=== PATIENT | female | born 1960 | race Caucasian/White ===

== ENCOUNTER → 2017-03-13 | Outpatient (CLI) | payer OTHER ==
--- NOTE | 2017-03-14 05:43 | PAP/PSG TECHNICIAN REPORT ---
[facility] [employer] Polysomnogram Report Study name: None Report date: 03/14/2017 Study date: 03/13/2017 Referring Physician: Solange Gibson M.D. Name: KAIN SÁNCHEZ Interpreting Physician: Rocio Gibson M.D. 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 Sex: Female Age: 56 StudyType: PSG Weight: 151 lbs Height: 56 years, Height 5' 4.5" Neck Circum: 12.5 inches BMI: 25.52 Medications: Prilosec 20 mg, Flexeril 10 mg, Elavil 25 mg, Rizatriptan Benzoate 5 mg, Meloxicam 15 mg, Flonase 50 MCG, Vitamin D 1000 Patient History 56 yr. old female here for a possible split night sleep study in room 6. Patient complains of gasping and EDS. She can always fall asleep. Patients [place] Sleepiness scale score is 18/24. Parameters Monitored NPSG: E1-M2, E2-M1, Fp1-M2, Fp2-M1, F3-M2, F4-M2, F4-M1, C3-M2, C4-M2, C4-M1, O1-M2, O2-M2, O2-M1, T3-M2, T4-M1, P3-M2, P4-M1, CHIN1, CHIN2, HR, EKG, Legs, PFLOW, SNOR, FLOW, CFLOW, Tidal Volume, THOR, ABDO, SpO2, PLTH, CPRESS, ETCO2 Wave, ETCO2, pH Sleep Architecture Sleep Stages Time at Lights Off 9:21:25 PM STAGES Time (min.) TST (%) Time at Lights On 5:29:25 AM Wake 38.5 -- Total Recording Time (TRT) 489.00 min. N1 32.0 7 Total Sleep Period (TSP) 467.0 min. N2 265.0 59 Total Sleep Time (TST) 449.5min. N3 52.5 12 Awake Time 39.5 min. REM 100.0 22 Wake after Sleep Onset 17.5 min. Sleep Efficiency (SE) 92 % Sleep Onset Latency (CURRY) 21.0 min. Number of Stage 1 Shifts None Awakenings 19 Stage Changes 92 Number of REM periods 14 REM 100.0 22 REM Latency 86.0 min. NREM 349.5 78 Body Position Analysis Supine Right Left Side Prone Vertical Total Sleep Time (min.) 392.1 47.0 44.7 91.66 0.0 0.0 Total Sleep Time (%) 80% 10% 10% 20 0% N/A% Total Sleep Time REM (min.) 100.0 0.0 0.0 None 0.0 0.0 Total Sleep Time NREM (min.) 257.8 47.0 44.7 None 0.0 0.0 Intermittent Wake (min.) 34.3 2.7 1.5 None 0.0 0.0 Total Sleep Period (%) 79% None None None None None Arousals Myoclonus (PLM) * Events Count Index Events Count Index Spontaneous 15 2 Events Awake (PLMW) 52 81.0 Respiratory 2 0.3 Events Asleep w/ Arousal (PLMA) 21 2.8 PLM 21 3 Events Asleep w/o Arousal (PLMS) 240 32.0 Snoring 7 1 Total Asleep 261 34.8 Total 45 6 Total 313 38 Respiratory Analysis * CA OA MA CH H RERA Total Count 0 0 0 0 3 1 3 Index 0.0 0.0 0.0 0 0.4 0 0.5 Mean Duration 0.0 0.0 0.0 0.00 26.7 16.4 24.2 Longest Duration 0.0 0.0 0.0 0.00 0.0 16.4 37.4 Respiratory Event Summary Total Supine ~Supine Right Left Prone REM NREM Apneas Count 0 0 0 0 0 N/A 0 0 Index 0.0 0 0 0.0 0.0 N/A 0 0 Hypopneas (4% Desat) Count 3 3 0 0 0 N/A 3 0 Index 0.4 0.5 0 0.0 0.0 N/A 1.8 0.0 Apneas & All Hypopneas Count 3 3 0 0 0 N/A 3 0 Index 0.4 1 0 0 0 N/A 1.8 0.0 Respiratory Events (Manager Therapy+All Hyp+RERA) Count 3 4 0 0 0 N/A 3 0 Index 0.5 1 0 0.0 0.0 N/A 1.8 0.2 Respiratory Related Arousal Count 2 4 0 0 0 N/A 1 1 Index 0.3 0 0 0 0 N/A 1 0 Snoring Analysis Supine Right Left Prone REM NREM Total Snore duration 1.3 min Snores count 27 3 3 N/A 8 25 33 Snore mean duration 2.3 Sec Snores index 5 4 4 N/A 4.8 4.3 4.4 TST with snoring (%) 0.3% SpO2 Analysis Total REM NREM Awake <50% 0.0 min. 0.0 min. 0.0 min. 0.0 min. 51 - 60% 0.0 min. 0.0 min. 0.0 min. 0.0 min. 61 - 70% 0.0 min. 0.0 min. 0.0 min. 0.0 min. 71 - 80% 0.0 min. 0.0 min. 0.0 min. 0.0 min. 81 - 90% 0.0 min. 0.0 min. 0.0 min. 0.0 min. 91 - 100% 487.2 min. 99.9 min. 349.5 min. 37.8 min. Average 96 97 96 96 Minimum SpO2 93 93 93 93 Desaturation Event Index 0.6 1.8 0.3 1.6 # Desat. Events below 89% N/A N/A N/A N/A Time(%) with Saturation below 89% 0.0 0.0 0.0 0.0 Time(min.) with Saturation below 89% 0.0 0.0 0.0 0.0 Heart Rate Analysis End Tidal CO2 Analysis Min (bpm) Max (bpm) Average (bpm) TSP (mins) % of TSP Awake 59 127 82 Above 55 mmHg 0.0 0.0 NREM 56 93 71 50-55 mmHg 227.0 50.5 REM 59 127 70 45-50 mmHg 222.5 49.5 Overall 56 127 71 40-45 mmHg 0.0 0.0 35-40 mmHg 0.0 0.0 30-35 mmHg 0.0 0.0 Average ETCO2 0.0 Supplemental O2 Values Minimum O2 level: None Value Start Time End Time [employer] Assembler Comments MS. Sánchez slept in the right, left, and supine and prone positions. No cardiac arrhythmia. PLMs noted. No bruxism noted. Snoring was noted and scored as a 1 on a scale of 0 through 5. (0=no snoring, 5=snoring loud enough to be heard through a closed door or down the [address]) MS. Sánchez did not wake to use the restroom during the night. MS. Sánchez stated, I have a headache again in the back of my head(occipital area). The final report will be interpreted and signed by a sleep physician. The completed physician report will then be placed in the patient medical record. Therapy (cm H2O) 0 TIB (min.) 488.0 TST (min.) 449.5 Sleep Onset (min.) 21.0 REM Onset From Sleep (min.) 86.0 Sleep Efficiency % 92 Wakefulness (%) 8 Wakefulness (min.) 39.5 NREM 1 (%) 7 NREM 1 (min.) 32.0 NREM 2 (%) 59 NREM 2 (min.) 265.0 NREM 3 (%) 12 NREM 3 (min.) 52.5 REM (%) 22 REM (min.) 100.0 # Arousals 45 Arousal Index 6 # Snore 33 Snore Index 4.4 AHI 0.4 AHI Supine 1 AHI Non-Supine 0 NREM AHI 0.0 REM AHI 1.8 RDI 0.5 # Obstructive Apnea 0 # Central Apnea 0 # Mixed Apnea 0 # Hypopneas 3 RERAs 1 Total Respiratory Events 4 Time Below SpO2 89% (min.) 0.0 Mean NREM SpO2 (%) 96 Mean REM SpO2 (%) 97 Mean Sleep SpO2 (%) 96 Min NREM SpO2 (%) 93 Min REM SpO2 (%) 93 Position Supine (min.) 392.1 Position Non-supine (min.) 91.7 LM Index Sleep 34.8 LM Index NREM 40.2 LM Index REM 16.2 Mean Heart Rate (bpm) 71 Min Heart Rate (bpm) 56
--- NOTE | 2017-03-26 16:02 | POLYSOMNOGRAPH REPORT ---
REFERRING PERSON: Dr. Andrés Gibson. [employer]OU[employer] M[employer]IS[employer] OPERATOR: Payal Vega. Ms. Sánchez is a 56-year-old female sent for a possible split night sleep study. She complains of gasping and excessive daytime sleepiness. She can always fall asleep. Her [place] Sleepiness Scale score on the evening of this study is 18. BMI is 25.52. Following the technical and digital specifications of the [place] [employer] (AASM) a standard diagnostic polysomnogram was performed monitoring EEG, EOG, EMG (chin and leg deviations), oxygen saturation, body position, digital video, respiratory effort and airflow. The sleep Stage and event scoring was based on the AASM Manual for the Scoring of Sleep and Associated Events 2007 edition. Apneas are defined as a drop in the peak thermal sensor excursion by >90% of baseline for at least 10 seconds. Hypopneas were scored using the 4% oxygen desaturation rule (4A-[employer]) and a decrease in the nasal pressure excursions by >30% of baseline for at least 10 seconds. Respiratory effort-related arousal (RERA's) is defined as a sequence of breaths lasting at least 10 seconds characterized by increasing respiratory effort or flattening of the nasal pressure waveform leading to an arousal from sleep when the sequence of breaths does not meet criteria for an apnea or hypopnea. Apnea Hypopnea index (AHI) is defined as the number of apneas and hypopneas occurring in an hour of sleep. Respiratory disturbance index (RDI) is defined as the number of apneas, hypopneas, and RERA's occurring in an hour of sleep. Ms. Sánchez's total sleep period time was 467 minutes. Total sleep time was 449.5 minutes for sleep efficiency of 92%. Latency to sleep onset was 21 minutes with wake after sleep onset of 17.5 minutes. Total non-REM sleep time was 349.5 minutes. She spent 7% of that time in N1 sleep, 59% in N2 sleep, and 12% in N3 sleep. REM latency is 86 minutes. Total REM sleep time was 100 minutes or 22% of total sleep time. There were 45 cortical arousals from sleep. Fifteen of these arousals were spontaneous, 2 were due to respiratory events, 21 due to periodic limb movements of sleep and 7 were due to snoring. There were 261 periodic limb movements noted on this test. Limb movement index was 34.8 and limb movement with arousal index was 2.8. There were no central obstructive or mixed apneas noted on this test. There were 3 hypopneas and 1 RERA. Apnea-hypopnea index was normal at 0.4. 33 snoring events were recorded. Total sleep time with snoring was 0.3%. Mean saturation was 96% with no desaturations less than 93%. There was no cardiac ectopy noted on this test. Heart rates ranged from a low of 56 beats per minute during non-REM sleep to a high of 127 beats per minute. End-tidal CO2 was recorded on this test. End tidal CO2s were between 50 and 55 mmHg for 50.5% of total sleep period time, between 45 and 50 mmHg for 49.5% of total sleep period time, I question this data. IMPRESSION AND PLAN: A 56-year-old female without evidence of sleep-disordered breathing, nocturnal hypoxemia, bruxism on this test. She does not have clinically significant periodic limb movements of sleep. She complains of hypersomnia and gasping from sleep. 1. I do not believe this patient has sleep-disordered breathing. She did have tidal CO2, which appeared to be elevated, but I question the accuracy of this data. Clinical correlation is needed.
== END | disposition home or self-care (01) ==
LOC: C.NEUR 20:00
PROVIDERS: ATTEND Family Medicine
DX: G47.10 Hypersomnia, unspecified (principal); R06.89 Other abnormalities of breathing

== ENCOUNTER → 2017-11-29 | Outpatient (CLI) | payer OTHER | END | disposition home or self-care (01) | LOC: C.LAB1850 16:22 | PROVIDERS: ATTEND Internal Medicine Endocrinology, Diabetes & Metabolism | DX: E04.1 Nontoxic single thyroid nodule (principal) ==

== ENCOUNTER → 2017-12-02 | Outpatient (CLI) | payer OTHER ==
[2017-12-02 17:40] LABS: HEMOGLOBIN 12.6 g/dL (12.0-16.0); MEAN CELL VOLUME 82.6 fL (80-100); MEAN CORPUSCULAR HEMOGLOBIN 26.7 pg (25-34); MEAN CORPUSCULAR HGB CONC 32.3 g/dl (32-36); MEAN PLATELET VOLUME 9.7 fL (7.4-10.4); PLATELET COUNT 176 K/uL (130-400); RED CELL DISTRIBUTION WIDTH CV 14.1 % (11.5-14.5); RED CELL DISTRIBUTION WIDTH SD 42.4 fL (36.4-46.3); WHITE BLOOD COUNT 5.49 K/uL (4.8-10.8)
[2017-12-03 07:16] LABS: HEMOGLOBIN A1C 5.2 % (4.5-5.6)
== END | disposition home or self-care (01) ==
LOC: C.LAB1850 17:16
PROVIDERS: ATTEND Internal Medicine Endocrinology, Diabetes & Metabolism
DX: E55.9 Vitamin D deficiency, unspecified (principal); R35.1 Nocturia

== ENCOUNTER → 2017-12-16 | Outpatient (CLI) | payer OTHER ==
--- NOTE | 2017-12-16 07:31 | DIAGNOSTIC IMAGING REPORT ---
CT SCAN OF THE NECK WITHOUT IV CONTRAST CLINICAL HISTORY: Neck pain. COMPARISON STUDY: Thyroid ultrasound dated 12/09/2017. TECHNIQUE: CT scan of the soft tissues of the neck was performed from the skull base to the upper chest. Images are reviewed in the axial, sagittal, and coronal planes. IV contrast was not administered for this examination as per the referring clinician. Note that the examination was performed in significantly suboptimal fashion without IV contrast. A dose lowering technique was utilized adhering to the principles of ALARA. CT DOSE: 272.99 mGy.cm FINDINGS: Pharynx: The unenhanced nasopharynx, oropharynx, and laryngeal pharynx are normal as visualized. The pharyngeal airway is widely patent. There is no evidence of mass lesion. The vocal cords are symmetric. The parapharyngeal fat is well maintained. The prevertebral/retropharyngeal soft tissues are within normal limits. Lymphadenopathy: No cervical lymphadenopathy is seen Thyroid: Normal in size and attenuation. Salivary glands: The parotid and submandibular glands are within normal limits. Brain parenchyma: The visualized brain parenchyma at the skull base is normal in appearance. Orbits: The bony orbits are intact. Orbital contents are normal as imaged. Skeletal structures: Imaged portions of the calvarium at the skull base are within normal limits. The cervical spine appears intact. Sinuses and mastoids: The visualized paranasal sinuses are clear. The mastoid air cells are well pneumatized. Lung apices: Visualized apical lung parenchyma is clear. IMPRESSION: Unremarkable unenhanced CT scan of the neck. Electronically signed by: Nixon Story M.D. 12/16/2017 7:30 AM Dictated Date/Time: 12/16/2017 7:25 AM
== END | disposition home or self-care (01) ==
LOC: C.CTS 07:00
PROVIDERS: ATTEND Internal Medicine Endocrinology, Diabetes & Metabolism
DX: M54.2 Cervicalgia (principal)